=== PATIENT | female | born 1985 | race Caucasian/White ===

== ENCOUNTER 2020-04-22 13:17 | Inpatient (IN) | payer MEDICAID ==
[~2020-04-22 13:17] MED LIST: Bupivacaine 0.25% 10 ML SDV ONE
[2020-04-22] MEDS ORDERED: Nalbuphine 10 MG/1 ML Vial IVPUSH PRN (13:27)
[2020-04-22] MEDS ORDERED: Ampicillin 2 GM in Sodium Chloride 0.9% 100 ML IV ONE (13:27)
[2020-04-22] MEDS ORDERED: Ondansetron 4 MG/2 ML SDV IVPUSH PRN (13:27)
[2020-04-22] MEDS ORDERED: Sodium Chloride 0.9% 10 ML Syringe FLUSH PRN (13:27)
[2020-04-22] MEDS ORDERED: Oxytocin/Lactated Ringers 20 UNIT/1,000 ML BAG IV SCH (13:30)
[2020-04-22] MEDS: Lactated Ringers 1,000 ML IV SCH ×3 (14:10→21:39)
--- NOTE | 2020-04-22 15:22 | PCM.LDHP ---
L&D History of Present Illness - General Date of Service: 04/22/20 Admit Problem/Dx: Patient Status Order with Admit Dx/Problem 04/22/20 13:27 Patient Status [ADT] Routine Admission Diagnosis/Problem Admission Diagnosis/Problem Source of Information: Patient History Limitations: Reports: No Limitations - History of Present Illness Introduction:: -year-old -0-1-2 LUCIE 04/19/2020 at estimated gestational age of 40 weeks and 3 days presented to labor delivery complaining of contractions. On presentation to labor and delivery cervix taper operator dilated 30 to 50% effaced cephalic presentation -2 station cephalic presentation was confirmed by bedside ultrasound by RN prior to my visit. Is GBS positive and has received first dose of antibiotics. Having irregular contractions. Reactive nonstress test. 12/27/2019 blood type A+ antibody screen negative hemoglobin 0.8 platelets 253,000 rubella immune serology nonreactive hepatitis B surface antigen hepatitis C nonreactive 10/18/2019 hemoglobin 13.8 And-hour OB glucose screen 95 03/27/2020 GBS positive. We will keep patient in labor and delivery and evaluate again as appropriate. Improves with: Reports: None Worsens with: Reports: None Associated Symptoms: Reports: N - Related Data Allergies/Adverse Reactions: Allergies Allergy/AdvReac Type Severity Reaction Status Date / Time No Known Allergies Allergy Verified 04/22/20 13:46 Home Medications: Home Meds Vits #93/Iron Fum/FA [ Formula Tablet] 1 each PO DAILY 04/22/20 [History] Past Medical History Gastrointestinal History: Reports: Other (See Below) (Previous tonsillectomy adenoidectomy at approximately age 8 and patient has had cholecystectomy approximately 2009.) H&P Review of Systems - Review of Systems: Review Of Systems: See Below General: Reports: No Symptoms HEENT: Reports: No Symptoms Pulmonary: Reports: No Symptoms Cardiovascular: Reports: No Symptoms Gastrointestinal: Reports: No Symptoms Genitourinary: Reports: No Symptoms Musculoskeletal: Reports: No Symptoms Skin: Reports: No Symptoms Psychiatric: Reports: No Symptoms Neurological: Reports: No Symptoms Hematologic/Lymphatic: Reports: No Symptoms Immunologic: Reports: No Symptoms L&D Exam - Exam Exam: See Below - Vital Signs Weight: 187 lb - OB Specific Fundal Height In cm: 38 Contraction Duration (sec): 60 Contraction Frequency (min): 3-5 Contraction Intensity: Mild to Moderate Movement: Active Heart Tones: Present Heart Tones per Min: 140 Heart Rate (FHR) Variability: Moderate (6-25 bmp) Presentation: Vertex - Michel Score Michel Score Cervix Position: Posterior Michel Score Consistency: Soft Michel Score Effacement: 31-50% Michel Score Dilation: 1-2 cm Michel Score 's Station: -2 Michel Score Total: 5 - Exam General: Alert, Oriented HEENT: Conjunctiva Clear, Mucosa Moist & [place] Neck: Supple, Trachea Midline Lungs: Clear to Auscultation, Normal Respiratory Effort Cardiovascular: Regular Rate, Regular Rhythm GI/Abdominal Exam: Normal Bowel Sounds, Soft, Non-Tender Genitourinary: Normal external exam Extremities: Normal Inspection, Non-Tender, No Pedal Edema, Normal Capillary Refill Skin: Warm, Dry, Intact Psychiatric: Alert, Normal Affect, Normal Mood - Patient Data Lab Results Last 24 hrs: Laboratory Results - last 24 hr 04/22/20 04/22/20 Range/Units 13:30 13:30 WBC 15.50 H (3.98-10.04) K/mm3 RBC 4.83 (3.98-5.22) M/mm3 Hgb 14.4 (11.2-15.7) gm/dl Hct 43.8 (34.1-44.9) % MCV 90.7 (79.4-94.8) fl MCH 29.8 (25.6-32.2) pg MCHC 32.9 (32.2-35.5) g/dl RDW Std Deviation 45.0 (36.4-46.3) fL Plt Count 273 (182-369) K/mm3 MPV 10.6 (9.4-12.3) fl SARS-CoV-2 RNA (NANCI) Negative (NEGATIVE) Result Diagrams: 04/22/20 13:30 - Problem List (1) 40 weeks gestation of SNOMED Code(s): 98141926 ICD Code: Z3A.40 - 40 WEEKS GESTATION OF Status: Acute Current Visit: Yes (2) GBS carrier SNOMED Code(s): 1752976738753 ICD Code: Z22.330 - CARRIER OF GROUP B STREPTOCOCCUS Status: Acute Current Visit: Yes Problem List Initiated/Reviewed/Updated: No Orders Last 24hrs: Active Orders 24 hr Category Date Time Status Patient Status [ADT] Routine ADT 04/22/20 13:27 Active Activity as Tolerated [RC] PFP Care 04/22/20 13:27 Active Communication Order [RC] ASDIRECTED Care 04/22/20 13:27 Active Heart Tones [RC] ASDIRECTED Care 04/22/20 13:27 Active Non Stress Test [RC] PER UNIT ROUTINE Care 04/22/20 13:27 Active Notify Provider [RC] PFP Care 04/22/20 13:27 Active Notify Provider [RC] PRN Care 04/22/20 13:27 Active Peripheral IV Care [RC] . DIRECTED Care 04/22/20 13:27 Active Vital Signs [RC] PER UNIT ROUTINE Care 04/22/20 13:27 Active Regular Diet [DIET] Diet 04/22/20 Dinner Active RAPID PLASMA REAGIN,RPR [CHEM] Routine Lab 04/22/20 13:30 Received Ampicillin 1 gm Med 04/22/20 18:00 Active Sodium Chloride 0.9% [Normal Saline] 100 ml IV Q4H Lactated Ringers [Ringers, Lactated] 1,000 ml Med 04/22/20 13:30 Active IV ASDIRECTED Nalbuphine [Nubain] Med 04/22/20 13:27 Active 10 mg IVPUSH Q2H PRN Ondansetron [Zofran] Med 04/22/20 13:27 Active 4 mg IVPUSH Q4H PRN Oxytocin/Lactated Ringers [Pitocin in LR 20 Units/1,000 Med 04/22/20 13:30 Active ML] 20 unit in 1,000 ml IV .CONTINUOUS Sodium Chloride 0.9% [Saline Flush] Med 04/22/20 13:27 Active 10 ml FLUSH ASDIRECTED PRN Electronic Heart Tones Ext w TOCO [WOMSER] Oth 04/22/20 13:27 Ordered Routine Electronic Heart Tones Internal [WOMSER] Per Unit Oth 04/22/20 13:27 Ordered Routine Peripheral IV Insertion Adult [OM.PC] Routine Oth 04/22/20 13:27 Ordered Resuscitation Status Routine Resus Stat 04/22/20 13:27 Ordered Medication Orders Ampicillin Sodium 1 gm/ Sodium (Chloride) 100 mls @ 200 mls/hr IV Q4H TIA Oxytocin/Lactated Ringer's (Pitocin In Lr 20 Units/1,000 Ml) 20 unit in 1,000 mls @ 500 mls/hr IV .CONTINUOUS TIA Lactated Ringer's (Ringers, Lactated) 1,000 mls @ 100 mls/hr IV ASDIRECTED [facility] Last Admin: 04/22/20 14:10 Dose: 100 mls/hr Documented by: VICENTE Nalbuphine HCl (Nubain) 10 mg IVPUSH Q2H PRN PRN Reason: Pain Ondansetron HCl (Zofran) 4 mg IVPUSH Q4H PRN PRN Reason: Nausea/Vomiting Sodium Chloride (Saline Flush) 10 ml FLUSH ASDIRECTED PRN PRN Reason: Keep Vein Open Assessment/Plan Comment:: Plan observation for labor possible rupture membranes when cervix more favorable to dilated and cephalic presentation has descended to better station.
[2020-04-22] MEDS: Ampicillin 1 GM in Sodium Chloride 0.9% 100 ML IV SCH ×2 (17:58→22:05)
[2020-04-22] MEDS ORDERED: Oxytocin/Lactated Ringers 10 UNIT/1,000 ML BAG IV SCH (18:15)
[2020-04-22] MEDS: Famotidine 10 MG Tab PO SCH (18:20)
[2020-04-22] MEDS ORDERED: fentaNYL 100 MCG/2 ML SDV EPIDUR PRN (20:31)
[2020-04-22] MEDS ORDERED: ePHEDrine 50 MG/ML SDV IVPUSH PRN (20:31)
[2020-04-22] MEDS ORDERED: diphenhydrAMINE 50 MG/ML SDV IVPUSH PRN (20:31)
[2020-04-22] MEDS ORDERED: Bupivacaine/fentaNYL/NS 100 ML Bag EPIDUR PRN (20:31)
--- NOTE | 2020-04-22 21:02 | PCM.PREANE ---
Preanesthetic Assessment - Procedure Proposed Procedure: epidural - Anesthesia/Transfusion/Family Hx Anesthesia History: Prior Anesthesia Without Reaction Family History of Anesthesia Reaction: No Transfusion History: No Prior Transfusion(s) - Review of Systems General: Fatigue Pulmonary: No Symptoms Cardiovascular: No Symptoms Gastrointestinal: Abdominal Pain (labor) Neurological: No Symptoms Other: Reports: None - Physical Assessment Vital Signs: Last Vital Signs Temp 36.2 C 04/22/20 13:27 Pulse 78 04/22/20 14:40 Resp 16 04/22/20 13:27 BP 125/83 04/22/20 14:40 Pulse Ox 98 04/22/20 13:27 Height: 1.7 m Weight: 84.822 kg ASA Class: 2 Mental Status: Alert & Oriented x3 Airway Class: Mallampati = 1 Dentition: Reports: Normal Dentition Thyro-Mental Finger Breadths: 3 Mouth Opening Finger Breadths: 3 ROM/Head Extension: Full Lungs: Clear to Auscultation, Normal Respiratory Effort Cardiovascular: Regular Rate, Regular Rhythm - Lab Values: Laboratory Last Values WBC 15.50 K/mm3 (3.98-10.04) H 04/22/20 13:30 RBC 4.83 M/mm3 (3.98-5.22) 04/22/20 13:30 Hgb 14.4 gm/dl (11.2-15.7) 04/22/20 13:30 Hct 43.8 % (34.1-44.9) 04/22/20 13:30 MCV 90.7 fl (79.4-94.8) 04/22/20 13:30 MCH 29.8 pg (25.6-32.2) 04/22/20 13:30 MCHC 32.9 g/dl (32.2-35.5) 04/22/20 13:30 RDW Std Deviation 45.0 fL (36.4-46.3) 04/22/20 13:30 Plt Count 273 K/mm3 (182-369) 04/22/20 13:30 MPV 10.6 fl (9.4-12.3) 04/22/20 13:30 RPR Non-reactive (NONREACTIVE) 04/22/20 13:30 SARS-CoV-2 RNA (NANCI) Negative (NEGATIVE) 04/22/20 13:30 - Allergies Allergies/Adverse Reactions: Allergies Allergy/AdvReac Type Severity Reaction Status Date / Time No Known Allergies Allergy Verified 04/22/20 13:46 - Anesthesia Plan Pre-Op Medication Ordered: Antacids - Acknowledgements Anesthesia Type Planned: Epidural Pt an Appropriate Candidate for the Planned Anesthesia: Yes Alternatives and Risks of Anesthesia Discussed w Pt/Guardian: Yes Pt/Guardian Understands and Agrees with Anesthesia Plan: Yes PreAnesthesia Questionnaire HEENT History: Reports: Other (See Below) Other HEENT History: wears glasses when needed Gastrointestinal History: Reports: GERD, Other (See Below) (Previous tonsillectomy adenoidectomy at approximately age 8 and patient has had cholecystectomy approximately 2009.) Other Gastrointestinal History: worse with vitamins LATHMAKER History: Reports: , Spontaneous - Past Surgical History HEENT Surgical History: Reports: None GI Surgical History: Reports: Cholecystectomy - SUBSTANCE USE Tobacco Use Status *Q: Former Tobacco User Tobacco Use Within Last Twelve Months: No Second Hand Smoke Exposure: No Recreational Drug Use History: No - HOME MEDS Home Medications: Home Meds Vits #93/Iron Fum/FA [ Formula Tablet] 1 each PO DAILY 04/22/20 [History] - CURRENT (IN HOUSE) MEDS Current Meds: Current Medications Diphenhydramine HCl (Benadryl) 25 mg IVPUSH Q6H PRN PRN Reason: pruritis Ephedrine Sulfate (Ephedrine Sulfate) 5 mg IVPUSH ASDIRECTED PRN PRN Reason: Hypotension Famotidine (Pepcid) 10 mg PO BID [facility] Last Admin: 04/22/20 18:20 Dose: 10 mg Documented by: Fentanyl (Sublimaze) 100 mcg EPIDUR Q3H PRN PRN Reason: Pain Last Admin: 04/22/20 20:43 Dose: 100 mcg Documented by: Fentanyl/Bupivacaine HCl (Fentanyl/Bupivacaine/Ns 2 Mcg-0.125% 100 Ml) 100 ml EPIDUR ASDIRECTED PRN PRN Reason: Pain Last Admin: 04/22/20 20:44 Dose: 100 ml Documented by: Ampicillin Sodium 1 gm/ Sodium (Chloride) 100 mls @ 200 mls/hr IV Q4H [facility] Last Admin: 04/22/20 17:58 Dose: 200 mls/hr Documented by: Oxytocin/Lactated Ringer's (Pitocin In Lr 20 Units/1,000 Ml) 20 unit in 1,000 mls @ 500 mls/hr IV .CONTINUOUS TIA Lactated Ringer's (Ringers, Lactated) 1,000 mls @ 100 mls/hr IV ASDIRECTED TIA Last Admin: 04/22/20 19:30 Dose: 100 mls/hr Documented by: Oxytocin/Lactated Ringer's (Pitocin In Lr 10 Units/1,000 Ml) 10 unit in 1,000 mls @ 12 mls/hr IV TITRATE TIA; Protocol Last Titration: 04/22/20 20:15 Dose: 10 munits/min, 60 mls/hr Documented by: Nalbuphine HCl (Nubain) 10 mg IVPUSH Q2H PRN PRN Reason: Pain Ondansetron HCl (Zofran) 4 mg IVPUSH Q4H PRN PRN Reason: Nausea/Vomiting Sodium Chloride (Saline Flush) 10 ml FLUSH ASDIRECTED PRN PRN Reason: Keep Vein Open Discontinued Medications Ampicillin Sodium 2 gm/ Sodium (Chloride) 100 mls @ 200 mls/hr IV ONETIME ONE Stop: 04/22/20 13:56 Last Admin: 04/22/20 14:13 Dose: 200 mls/hr Documented by:
--- NOTE | 2020-04-22 22:49 | PCM.DEL ---
L & D Note - General Info Date of Service: 04/22/20 Mother's Due Date: 04/19/20 - Delivery Note Labor: Spontaneous, Augmented by ARM (at complete clear fluid delivered 2225), Augmented by Oxytocin Delivery Outcome: Livebirth (2226 hrs. 04/22/2020 male liveborn DESIREE nuchal cord x1 weight pending Apgars 8/9) Infant Delivery Method: Spontaneous Vaginal Delivery-Single Delivery Mode: Spontaneous Presentation: Right Occiput Anterior (DESIREE) Nuchal Cord: Present (X1) Prep: Povidone-Iodine (Betadine Anesthesia Type: Epidural Episiotomy Type: None Laceration: 1st Degree (Left periurethral, right labia majora not bleeding not sutured) Placenta: Intact, Spontaneous (2230 hours 04/22/2020) Cord: 3 Vessels Estimated Blood Loss: 250 (Cytotec 200 mcg x2) Resuscitation Needed: No : Suctioned, Bulb Syringe, Stimulated, Warmed, [place] Used Provider: Morales Steven Score 1 min: 8 Score 5 min: 9 Induction Criteria - Augmentation Estimated Pelvis: Reports: Adequate Weight Estimated:: Reports: AGA Estimated Weight if LGA: 7 lb 8 oz Reassuring Monitoring Strip: Yes Absence of Tachy Systole: Yes - General Info Date of Service: 04/22/20 Functional Status: Reports: Pain Controlled - Review of Systems General: Reports: No Symptoms HEENT: Reports: No Symptoms Pulmonary: Reports: No Symptoms Cardiovascular: Reports: No Symptoms Gastrointestinal: Reports: No Symptoms Genitourinary: Reports: No Symptoms Musculoskeletal: Reports: No Symptoms Skin: Reports: No Symptoms Neurological: Reports: No Symptoms Psychiatric: Reports: No Symptoms - Patient Data Vitals - Most Recent: Last Vital Signs Temp 97.2 F 04/22/20 13:27 Pulse 78 04/22/20 14:40 Resp 16 04/22/20 13:27 BP 125/83 04/22/20 14:40 Pulse Ox 98 04/22/20 13:27 Weight - Most Recent: 187 lb Lab Results Last 24 Hours: Laboratory Results - last 24 hr 04/22/20 04/22/20 04/22/20 Range/Units 13:30 13:30 13:30 WBC 15.50 H (3.98-10.04) K/mm3 RBC 4.83 (3.98-5.22) M/mm3 Hgb 14.4 (11.2-15.7) gm/dl Hct 43.8 (34.1-44.9) % MCV 90.7 (79.4-94.8) fl MCH 29.8 (25.6-32.2) pg MCHC 32.9 (32.2-35.5) g/dl RDW Std Deviation 45.0 (36.4-46.3) fL Plt Count 273 (182-369) K/mm3 MPV 10.6 (9.4-12.3) fl RPR Non-reactive (NONREACTIVE) SARS-CoV-2 RNA (NANCI) Negative (NEGATIVE) Med Orders - Current: Current Medications Diphenhydramine HCl (Benadryl) 25 mg IVPUSH Q6H PRN PRN Reason: pruritis Ephedrine Sulfate (Ephedrine Sulfate) 5 mg IVPUSH ASDIRECTED PRN PRN Reason: Hypotension Famotidine (Pepcid) 10 mg PO BID [facility] Last Admin: 04/22/20 18:20 Dose: 10 mg Documented by: Fentanyl (Sublimaze) 100 mcg EPIDUR Q3H PRN PRN Reason: Pain Last Admin: 04/22/20 20:43 Dose: 100 mcg Documented by: Fentanyl/Bupivacaine HCl (Fentanyl/Bupivacaine/Ns 2 Mcg-0.125% 100 Ml) 100 ml EPIDUR ASDIRECTED PRN PRN Reason: Pain Last Admin: 04/22/20 20:44 Dose: 100 ml Documented by: Ampicillin Sodium 1 gm/ Sodium (Chloride) 100 mls @ 200 mls/hr IV Q4H [facility] Last Admin: 04/22/20 17:58 Dose: 200 mls/hr Documented by: Oxytocin/Lactated Ringer's (Pitocin In Lr 20 Units/1,000 Ml) 20 unit in 1,000 mls @ 500 mls/hr IV .CONTINUOUS [facility] Lactated Ringer's (Ringers, Lactated) 1,000 mls @ 100 mls/hr IV ASDIRECTED [facility] Last Admin: 04/22/20 21:39 Dose: 100 mls/hr Documented by: Oxytocin/Lactated Ringer's (Pitocin In Lr 10 Units/1,000 Ml) 10 unit in 1,000 mls @ 12 mls/hr IV TITRATE TIA; Protocol Last Titration: 04/22/20 20:15 Dose: 10 munits/min, 60 mls/hr Documented by: Nalbuphine HCl (Nubain) 10 mg IVPUSH Q2H PRN PRN Reason: Pain Ondansetron HCl (Zofran) 4 mg IVPUSH Q4H PRN PRN Reason: Nausea/Vomiting Sodium Chloride (Saline Flush) 10 ml FLUSH ASDIRECTED PRN PRN Reason: Keep Vein Open Discontinued Medications Ampicillin Sodium 2 gm/ Sodium (Chloride) 100 mls @ 200 mls/hr IV ONETIME ONE Stop: 04/22/20 13:56 Last Admin: 04/22/20 14:13 Dose: 200 mls/hr Documented by: - Exam General: Alert, Oriented HEENT: Mucous Membr. Moist/[place] Extremities: Normal Inspection, Normal Range of Motion, Non-Tender, No Pedal Edema, Normal Capillary Refill Skin: Warm, Dry, Intact Psy/Mental Status: Alert, Normal Affect, Normal Mood - Problem List & Annotations (1) 40 weeks gestation of SNOMED Code(s): 25029293 Code(s): Z3A.40 - 40 WEEKS GESTATION OF Status: Acute Current Visit: Yes (2) GBS carrier SNOMED Code(s): 1574125618752 Code(s): Z22.330 - CARRIER OF GROUP B STREPTOCOCCUS Status: Acute Current Visit: Yes (3) Labor and delivery complicated by cord around neck, without compression, not applicable or unspecified SNOMED Code(s): 578755844, 292211437 Code(s): O69.81X0 - LABOR AND DEL COMP BY CORD AROUND NECK, W/O COMPRSN, UNSP Status: Acute Current Visit: Yes (4) Periurethral laceration, delivered, current hospitalization SNOMED Code(s): 614092752, 841548407 Code(s): O71.82 - OTHER SPECIFIED TRAUMA TO PERINEUM AND VULVA Status: Acute Current Visit: Yes - Problem List Review Problem List Initiated/Reviewed/Updated: No - My Orders Last 24 Hours: My Active Orders 04/22/20 13:27 Patient Status [ADT] Routine Activity as Tolerated [RC] PFP Communication Order [RC] ASDIRECTED Notify Provider [RC] PFP Notify Provider [RC] PRN Peripheral IV Care [RC] . DIRECTED Vital Signs [RC] PER UNIT ROUTINE Nalbuphine [Nubain] 10 mg IVPUSH Q2H PRN Ondansetron [Zofran] 4 mg IVPUSH Q4H PRN Sodium Chloride 0.9% [Saline Flush] 10 ml FLUSH ASDIRECTED PRN Electronic Heart Tones Ext w TOCO [WOMSER] Routine Electronic Heart Tones Internal [WOMSER] Per Unit Routine Peripheral IV Insertion Adult [OM.PC] Routine Resuscitation Status Routine 04/22/20 13:30 Lactated Ringers [Ringers, Lactated] 1,000 ml IV ASDIRECTED Oxytocin/Lactated Ringers [Pitocin in LR 20 Units/1,000 ML] 20 unit in 1,000 ml IV .CONTINUOUS 04/22/20 Dinner Regular Diet [DIET] 04/22/20 18:00 Ampicillin 1 gm Sodium Chloride 0.9% [Normal Saline] 100 ml IV Q4H 04/22/20 18:15 Famotidine [Pepcid] 10 mg PO BID Oxytocin/Lactated Ringers [Pitocin in LR 10 Units/1,000 ML] 10 unit in 1,000 ml IV TITRATE - Plan Plan:: Plan observation for labor possible rupture membranes when cervix more favorable to dilated and cephalic presentation has descended to better station.
[2020-04-22] MEDS ORDERED: Misoprostol 200 MCG Tab ONE (22:52)
[2020-04-23] MEDS ORDERED: Benzocaine/Menthol 20%-0.5% Spray 56 GM Canister TOP PRN (00:03)
[2020-04-23] MEDS ORDERED: Witch Hazel Medicated Pads 40/Jar TOP PRN (00:03)
[2020-04-23] MEDS ORDERED: Docusate Sodium 100 MG Cap PO PRN (00:03)
[2020-04-23] MEDS ORDERED: Misoprostol 200 MCG Tab PO PRN (00:03)
[2020-04-23] MEDS ORDERED: Acetaminophen 325 MG Tab PO PRN (00:03)
[2020-04-23] MEDS: Famotidine 10 MG Tab PO SCH (00:04)
[2020-04-23] MEDS: Ibuprofen 600 MG Tab PO PRN ×4 (00:24→18:01)
--- NOTE | 2020-04-23 08:48 | PCM.SN.2 ---
- Free Text/Narrative Note: Post Progress Note PPD #1 Subjective: Doing well overall. Ambulating without difficulty. Reports that she is having some soreness in her hips bilaterally. This is making it somewhat difficult getting out of bed. Is improving since last night. Lochia minimal and decreasing since delivery last evening. Voiding without difficulty. Tolerating regular diet without nausea or vomiting. Pain controlled with oral medications. Bottlefeeding with minimal difficulty. Reports that she is not having any milk production at this time. Objective: Vitals: Vital Signs - 8 hr 04/23/20 03:28 Temperature 36.9 C Pulse, 64 Peripheral Respiratory 15 Rate Blood Pressure 124/42 L O2 Sat by Pulse 98 Oximetry Physical Exam General: Alert and oriented, no acute distress Lungs: Clear to auscultation bilaterally Heart: Regular rate and rhythm Abdomen: Soft, minimal appropriate tenderness, non-distended, fundus midline, nontender, and at the umbilicus Extremities: Trace edema in bilateral lower extremities to ankles, no calf tenderness bilaterally Laboratory Results - last 24 hr 04/22/20 04/22/20 04/22/20 Range/Units 13:30 13:30 13:30 WBC 15.50 H (3.98-10.04) K/mm3 RBC 4.83 (3.98-5.22) M/mm3 Hgb 14.4 (11.2-15.7) gm/dl Hct 43.8 (34.1-44.9) % MCV 90.7 (79.4-94.8) fl MCH 29.8 (25.6-32.2) pg MCHC 32.9 (32.2-35.5) g/dl RDW Std Deviation 45.0 (36.4-46.3) fL Plt Count 273 (182-369) K/mm3 MPV 10.6 (9.4-12.3) fl Neut % (Auto) (34.0-71.1) % Lymph % (Auto) (19.3-51.7) % [place] % (Auto) (4.7-12.5) % Eos % (Auto) (0.7-5.8) Baso % (Auto) (0.1-1.2) % Neut # (Auto) (1.56-6.13) K/mm3 Lymph # (Auto) (1.18-3.74) K/mm3 [place] # (Auto) (0.24-0.36) K/mm3 Eos # (Auto) (0.04-0.36) K/mm3 Baso # (Auto) (0.01-0.08) K/mm3 Manual Slide Review RPR Non-reactive (NONREACTIVE) SARS-CoV-2 RNA (NANCI) Negative (NEGATIVE) 04/23/20 Range/Units 05:08 WBC 15.29 H (3.98-10.04) K/mm3 RBC 4.38 (3.98-5.22) M/mm3 Hgb 13.0 (11.2-15.7) gm/dl Hct 39.9 (34.1-44.9) % MCV 91.1 (79.4-94.8) fl MCH 29.7 (25.6-32.2) pg MCHC 32.6 (32.2-35.5) g/dl RDW Std Deviation 44.4 (36.4-46.3) fL Plt Count 233 (182-369) K/mm3 MPV 11.0 (9.4-12.3) fl Neut % (Auto) 75.2 H (34.0-71.1) % Lymph % (Auto) 12.9 L (19.3-51.7) % [place] % (Auto) 8.7 (4.7-12.5) % Eos % (Auto) 2.0 (0.7-5.8) Baso % (Auto) 0.2 (0.1-1.2) % Neut # (Auto) 11.51 H (1.56-6.13) K/mm3 Lymph # (Auto) 1.97 (1.18-3.74) K/mm3 [place] # (Auto) 1.33 H (0.24-0.36) K/mm3 Eos # (Auto) 0.30 (0.04-0.36) K/mm3 Baso # (Auto) 0.03 (0.01-0.08) K/mm3 Manual Slide Review Normal smear RPR (NONREACTIVE) SARS-CoV-2 RNA (NANCI) (NEGATIVE) ASSESSMENT: 34-year-old female -0-1-3 s/p normal vaginal delivery PPD #1, complicated by GBS positive status and received 3 total doses prior to delivery PLAN: Doing well Bottlefeeding with minimal difficulty. Assist as needed. No milk production at this time. Patient given recommendations to reduce milk production. Lochia minimal. Continue to monitor for appropriate lochia. Continue routine care Anticipate discharge home tomorrow due to late timing of delivery with GBS positive status during labor Jason Chacon MD 8:47 AM 04/23/2020
[2020-04-24] MEDS: Ibuprofen 600 MG Tab PO PRN ×2 (03:09→07:57)
--- NOTE | 2020-04-24 06:54 | PCM.DCSUM1 ---
Discharge Summary - Hospital Course Brief History: Admitted in labor. Uncomplicated labor, delivery and course. Diagnosis: Stroke: No - Discharge Data Discharge Date: 04/24/20 Discharge Disposition: Admitted As Inpatient 66 Condition: Good - Referral to Home Health Primary Care Physician: Kasia Rivera MD - Patient Instructions Diet: Usual Diet as Tolerated Activity: No Strenuous Activities Driving: May Drive Today Showering/Bathing: May Shower Notify Provider of: Fever, Increased Pain, Swelling and Redness, Drainage, Nausea and/or Vomiting - Discharge Plan *PRESCRIPTION DRUG MONITORING PROGRAM REVIEWED*: No *COPY OF PRESCRIPTION DRUG MONITORING REPORT IN PATIENT JORGE LUIS: No Home Medications: Home Meds Vits #93/Iron Fum/FA [ Formula Tablet] 1 each PO DAILY 04/22/20 [History] Referrals: Kasia Rivera MD [Primary Care Provider] - (2-6 weeks (can c oordinate with peds appointment too)) - Discharge Summary/Plan Comment DC Time >30 min.: No - General Info Date of Service: 04/24/20 Functional Status: Reports: Pain Controlled - Review of Systems General: Reports: No Symptoms HEENT: Reports: No Symptoms Pulmonary: Reports: No Symptoms Cardiovascular: Reports: No Symptoms Gastrointestinal: Reports: No Symptoms Genitourinary: Reports: No Symptoms Musculoskeletal: Reports: No Symptoms Skin: Reports: No Symptoms Neurological: Reports: No Symptoms Psychiatric: Reports: No Symptoms - Patient Data Vitals - Most Recent: Last Vital Signs Temp 36.6 C 04/24/20 03:08 Pulse 60 04/24/20 03:08 Resp 16 04/24/20 03:08 BP 108/77 04/24/20 03:08 Pulse Ox 98 04/24/20 03:08 Weight - Most Recent: 84.822 kg I&O - Last 24 hours: Intake & Output 04/23/20 04/23/20 04/24/20 14:59 22:59 06:59 Intake Total 440 Balance 440 Lab Results - Last 24 hrs: Laboratory Results - last 24 hr 04/23/20 Range/Units 05:08 Manual Slide Review Normal smear Med Orders - Current: Current Medications Acetaminophen (Tylenol) 650 mg PO Q4H PRN PRN Reason: mild pain or fever Benzocaine/Menthol (Dermoplast Pain Relief [place]) 0 gm TOP ASDIRECTED PRN PRN Reason: Perineal Comfort Measure Last Admin: 04/23/20 00:23 Dose: 1 can Documented by: Docusate Sodium (Colace) 100 mg PO BID PRN PRN Reason: Constipation Ibuprofen (Motrin) 600 mg PO Q4H PRN PRN Reason: Mild pain or fever Last Admin: 04/24/20 03:09 Dose: 600 mg Documented by: Misoprostol (Cytotec) 400 mcg PO ONETIME PRN PRN Reason: excessive vaginal bleeding Last Admin: 04/22/20 22:55 Dose: 400 mcg Documented by: Pito Song (Annia) 1 pad TOP ASDIRECTED PRN PRN Reason: Perineal Comfort Measure Last Admin: 04/23/20 00:23 Dose: 1 canister Documented by: Discontinued Medications Bupivacaine HCl (Sensorcaine-Mpf 0.25%) 10 ml .ROUTE .STK-MED ONE Stop: 04/22/20 00:01 Diphenhydramine HCl (Benadryl) 25 mg IVPUSH Q6H PRN PRN Reason: pruritis Ephedrine Sulfate (Ephedrine Sulfate) 5 mg IVPUSH ASDIRECTED PRN PRN Reason: Hypotension Famotidine (Pepcid) 10 mg PO BID [facility] Last Admin: 04/23/20 00:04 Dose: Not Given Documented by: Fentanyl (Sublimaze) 100 mcg EPIDUR Q3H PRN PRN Reason: Pain Last Admin: 04/22/20 20:43 Dose: 100 mcg Documented by: Fentanyl/Bupivacaine HCl (Fentanyl/Bupivacaine/Ns 2 Mcg-0.125% 100 Ml) 100 ml EPIDUR ASDIRECTED PRN PRN Reason: Pain Last Admin: 04/22/20 20:44 Dose: 100 ml Documented by: Ampicillin Sodium 2 gm/ Sodium (Chloride) 100 mls @ 200 mls/hr IV ONETIME ONE Stop: 04/22/20 13:56 Last Admin: 04/22/20 14:13 Dose: 200 mls/hr Documented by: Ampicillin Sodium 1 gm/ Sodium (Chloride) 100 mls @ 200 mls/hr IV Q4H [facility] Last Admin: 04/22/20 22:05 Dose: 200 mls/hr Documented by: Oxytocin/Lactated Ringer's (Pitocin In Lr 20 Units/1,000 Ml) 20 unit in 1,000 mls @ 500 mls/hr IV .CONTINUOUS TIA Lactated Ringer's (Ringers, Lactated) 1,000 mls @ 100 mls/hr IV ASDIRECTED TIA Last Admin: 04/22/20 21:39 Dose: 100 mls/hr Documented by: Oxytocin/Lactated Ringer's (Pitocin In Lr 10 Units/1,000 Ml) 10 unit in 1,000 mls @ 12 mls/hr IV TITRATE TIA; Protocol Last Titration: 04/22/20 20:45 Dose: 12 munits/min, 72 mls/hr Documented by: Misoprostol (Cytotec) Confirm Administered Dose 400 mcg .ROUTE .[facility]-MED ONE Stop: 04/22/20 22:53 Last Admin: 04/23/20 03:31 Dose: Not Given Documented by: Nalbuphine HCl (Nubain) 10 mg IVPUSH Q2H PRN PRN Reason: Pain Ondansetron HCl (Zofran) 4 mg IVPUSH Q4H PRN PRN Reason: Nausea/Vomiting Sodium Chloride (Saline Flush) 10 ml FLUSH ASDIRECTED PRN PRN Reason: Keep Vein Open - Exam General: Reports: Alert, Oriented HEENT: Reports: Pupils Equal, Pupils Reactive, EOMI, Mucous Membr. Moist/[place] Neck: Reports: Supple Lungs: Reports: Clear to Auscultation, Normal Respiratory Effort Cardiovascular: Reports: Regular Rate, Regular Rhythm GI/Abdominal Exam: Normal Bowel Sounds, Soft, Non-Tender, No Organomegaly, No Distention, No Abnormal Bruit, No Mass, Pelvis Stable Rectal (Female) Exam: Normal Exam, Normal Rectal Tone Back Exam: Reports: Normal Inspection, Full Range of Motion Extremities: Normal Inspection, Normal Range of Motion, Non-Tender, No Pedal Edema, Normal Capillary Refill Skin: Reports: Warm, Dry, Intact Wound/Incisions: Reports: Healing Well Neurological: Reports: No New Focal Deficit Psy/Mental Status: Reports: Alert, Normal Affect, Normal Mood
== END 2020-04-24 10:14 | disposition home or self-care (01) | DRG 807 ==
LOC: JD.OBCHECK 13:17 → JD.OB 13:21 → JD.OBCHECK 13:27 → OBSVTOIN 22:30 → JD.OB 22:31
PROVIDERS: ADMIT Obstetrics & Gynecology; ATTEND Obstetrics & Gynecology
PROC: 10E0XZZ Delivery of Products of Conception, External Approach (ICD-10-PCS; principal; 2020-04-22)
PROC: 10907ZC Drainage of Amniotic Fluid, Therapeutic from Products of Conception, Via Natural or Artificial Opening (ICD-10-PCS; 2020-04-22)
PROC: 3E0R3BZ Introduction of Anesthetic Agent into Spinal Canal, Percutaneous Approach (ICD-10-PCS; 2020-04-22)
PROC: 00HU33Z Insertion of Infusion Device into Spinal Canal, Percutaneous Approach (ICD-10-PCS; 2020-04-22)
DX: O99.824 Streptococcus B carrier state complicating childbirth (principal); Z37.0 Single live birth; Z3A.40 40 weeks gestation of pregnancy; O70.0 First degree perineal laceration during delivery; O69.81X0 Labor and delivery complicated by cord around neck, without compression, not applicable or unspecified; O71.82 Other specified trauma to perineum and vulva; Z20.822 Contact with and (suspected) exposure to COVID-19
CPT/HCPCS: 01967; 36415; 51701; 59025; 59409; 85025; 85027; 86592; A9270-GY; J0290; J2590; J3010; J3490; J7120; U0002